=== PATIENT | female | born 1975 | race African-American/Black ===

== ENCOUNTER 2020-12-13 19:20 | Emergency (ER) | payer SELFPAY ==
[~2020-12-13] VITALS: Ht 170.2 cm; Wt 122.0 kg
[2020-12-13] MEDS ORDERED: ALBUTEROL (0.083%) 2.5MG/3ML NEB HHN STA (21:31)
[2020-12-13] MEDS ORDERED: ASPIRIN 81MG TABLET PO ONE (21:45)
[2020-12-13 23:47] LABS: BASOPHILS % 0.4 % (0.0-2.0); EOSINOPHILS % 1.1 % (0.0-5.0); HEMATOCRIT. 36.5 % (36.0-48.0); HEMOGLOBIN. 11.9 g/dL (12.0-16.0); LYMPHOCYTES % 39.2 % (20.0-50.0); MEAN CORPUSCULAR HEMOGLOBIN 29.9 pg (28.0-32.0); MEAN CORPUSCULAR VOLUME 91.4 fL (81.0-99.0); MEAN PLATELET VOLUME 8.4 fl (7.4-10.4); MONOCYTES % 6.2 % (2.0-8.0); NEUTROPHILS % 53.1 % (40.0-76.0); PLATELET 252 x1000/uL (130-400); RED BLOOD CELL COUNT 3.99 mill/uL (4.2-5.4)
[2020-12-13 23:52] LABS: CHLORIDE 108 mEq/L (98-107)
[2020-12-14 00:25] LABS: *COCAINE SCREEN URINE NEGATIVE (NEGATIVE)
[2020-12-14 00:26] LABS: *AMPHETAMINES SCREEN URINE NEGATIVE (NEGATIVE); *BARBITURATES SCREEN URINE NEGATIVE (NEGATIVE); *BENZODIAZEPINES SCREEN URINE NEGATIVE (NEGATIVE); METHADONE URINE SCREEN NEGATIVE (NEGATIVE); OPIATES URINE SCREEN NEGATIVE (NEGATIVE); PHENCYCLIDINE URINE SCREEN NEGATIVE (NEGATIVE)
[2020-12-14 00:31] LABS: CANNABINOID URINE SCREEN PRESUMTIVE POSITIVE (NEGATIVE)
[2020-12-14 00:55] VITALS: BP 135/81
== END 2020-12-14 01:08 | disposition home or self-care (01) ==
LOC: ER 19:20
DX: R07.89 Other chest pain (principal); R00.2 Palpitations; R06.02 Shortness of breath; F12.90 Cannabis use, unspecified, uncomplicated; I10 Essential (primary) hypertension; F17.210 Nicotine dependence, cigarettes, uncomplicated; J45.909 Unspecified asthma, uncomplicated; E78.00 Pure hypercholesterolemia, unspecified; Z71.6 Tobacco abuse counseling; Z98.890 Other specified postprocedural states
CPT/HCPCS: 36415; 71045; 80053; 80305; 83690; 83880; 84484; 85025; 85379; 94640; 99284; 99406; Z7610

== ENCOUNTER 2021-02-18 12:39 | Emergency (ER) | payer OTHER ==
[~2021-02-18] VITALS: Ht 170.2 cm; Wt 122.0 kg
[2021-02-18] MEDS ORDERED: HYDROCODONE/ACETAMINOPHEN 5/325MG TABLET PO ONE (13:00)
[2021-02-18] MEDS ORDERED: KETOROLAC 30MG/ML VIAL IV ONE (13:00)
[2021-02-18 14:12] LABS: BASOPHILS % 0.6 % (0.0-2.0); EOSINOPHILS % 1.1 % (0.0-5.0); HEMATOCRIT. 24.1 % (36.0-48.0); LYMPHOCYTES % 27.7 % (20.0-50.0); MEAN CORPUSCULAR HEMOGLOBIN 29.7 pg (28.0-32.0); MEAN CORPUSCULAR VOLUME 89.4 fL (81.0-99.0); MEAN PLATELET VOLUME 7.5 fl (7.4-10.4); MONOCYTES % 4.7 % (2.0-8.0); NEUTROPHILS % 65.9 % (40.0-76.0); PLATELET 67 x1000/uL (130-400); RED CELL DISTRIBUTION WIDTH 13.6 % (11.6-14.6)
[2021-02-18 14:22] LABS: CHLORIDE 108 mEq/L (98-107)
[2021-02-18 14:32] LABS: B-HCG QUANTITATIVE 2 mIU/mL (<3)
[2021-02-18 14:59] LABS: CLARITY URINE TURBID (CLEAR); COLOR URINE BLOODY (YELLOW); KETONES URINE 1+ (NEGATIVE); LEUKOCYTE ESTERASE URINE 2+ (NEGATIVE); NITRITE URINE POSITIVE (NEGATIVE); OCCULT BLOOD URINE 3+ (NEGATIVE); PROTEIN URINE 4+ (NEGATIVE); SPECIFIC GRAVITY URINE 1.032 (1.005-1.030)
[2021-02-18 16:00] VITALS: BP 132/81
[2021-02-18] MEDS ORDERED: NITR-87 MT (16:08)
== END 2021-02-18 16:26 | disposition home or self-care (01) ==
LOC: ER 12:39
DX: N93.9 Abnormal uterine and vaginal bleeding, unspecified (principal); D64.9 Anemia, unspecified; J45.909 Unspecified asthma, uncomplicated; E78.00 Pure hypercholesterolemia, unspecified; Z98.890 Other specified postprocedural states; Z90.49 Acquired absence of other specified parts of digestive tract
CPT/HCPCS: 36415; 76830; 76856; 80053; 81003; 81025; 84702; 85025; 86850; 86900; 86901; 96374; 99284; J1885

== ENCOUNTER 2021-08-31 09:08 | Emergency (ER) | payer MEDICAID, OTHER ==
[~2021-08-31] VITALS: Ht 170.2 cm; Wt 125.0 kg
[~2021-08-31 09:08] MED LIST: NITR-87 MT
[2021-08-31] MEDS ORDERED: SODIUM CHLORIDE 0.9% 1,000 ML IV ONE (10:00)
[2021-08-31] MEDS ORDERED: ONDANSETRON HCL 4MG/2ML INJ IV STA (10:07)
[2021-08-31] MEDS ORDERED: MORPHINE SULFATE 4 MG/ML CPJ (NOT FOR IM USE) IV STA (10:07)
[2021-08-31 10:34] LABS: CHLORIDE 107 mEq/L (98-107); PROTHROMBIN TIME 10.4 sec (9.6-11.0)
[2021-08-31 10:41] LABS: CLARITY URINE CLEAR (CLEAR); COLOR URINE YELLOW (YELLOW); KETONES URINE NEGATIVE (NEGATIVE); LEUKOCYTE ESTERASE URINE NEGATIVE (NEGATIVE); NITRITE URINE NEGATIVE (NEGATIVE); OCCULT BLOOD URINE NEGATIVE (NEGATIVE); PROTEIN URINE NEGATIVE (NEGATIVE); SPECIFIC GRAVITY URINE 1.019 (1.005-1.030); UROBILINOGEN URINE 0.2 E.U./dL (0.2-1.0)
[2021-08-31 10:42] LABS: BASOPHILS % 0.5 % (0.0-2.0); EOSINOPHILS % 0.6 % (0.0-5.0); HEMATOCRIT. 35.2 % (36.0-48.0); HEMOGLOBIN. 11.6 g/dL (12.0-16.0); LYMPHOCYTES % 31.6 % (20.0-50.0); MEAN CORPUSCULAR HEMOGLOBIN 28.5 pg (28.0-32.0); MEAN CORPUSCULAR VOLUME 86.1 fL (81.0-99.0); MEAN PLATELET VOLUME 8.6 fl (7.4-10.4); MONOCYTES % 5.3 % (2.0-8.0); PLATELET 187 x1000/uL (130-400); RED BLOOD CELL COUNT 4.08 mill/uL (4.2-5.4); RED CELL DISTRIBUTION WIDTH 16.2 % (11.6-14.6)
[2021-08-31 10:43] LABS: HCG SCREEN NEGATIVE
[2021-08-31] MEDS ORDERED: OMEP20CA14 MT (12:53)
[2021-08-31] MEDS ORDERED: IBUP-2030 MT (12:53)
[2021-08-31 13:10] VITALS: BP 132/77
== END 2021-08-31 13:30 | disposition home or self-care (01) ==
LOC: ER 09:50
DX: R10.32 Left lower quadrant pain (principal)
CPT/HCPCS: 36415; 74176; 80053; 81003; 83690; 84703; 85025; 85610; 96361; 96374; 96375; 99284; J2270; J2405; J7030

== ENCOUNTER 2024-05-10 07:57 | Emergency (ER) | payer BC, MEDICAID ==
[~2024-05-10] VITALS: Ht 170.2 cm; Wt 143.0 kg
[~2024-05-10 07:57] MED LIST changes: +IBUP-2030 MT; +OMEP20CA14 MT
[2024-05-10 08:06] VITALS: BP 142/85; RESP 12; TEMP 36.8; O2SAT 98
[2024-05-10 08:07] VITALS: PULSE 112; O2SAT 100
[2024-05-10] MEDS ORDERED: SUMATRIPTAN SUCCINATE 6MG/0.5ML VIAL SUBCUT ONE (08:45)
[2024-05-10 09:15] VITALS: TEMP 98.2
[2024-05-10] MEDS: METOCLOPRAMIDE HCL 10MG/2ML VIAL IM ONE (09:15)
[2024-05-10] MEDS: SUMATRIPTAN SUCCINATE 6MG/0.5ML VIAL SUBCUT NR (09:15)
[2024-05-10] MEDS: ACETAMINOPHEN 500MG TABLET PO ONE (09:15)
== END 2024-05-10 11:06 | disposition home or self-care (01) ==
LOC: ER 08:29
DX: R51.9 Headache, unspecified (principal); E11.9 Type 2 diabetes mellitus without complications; I10 Essential (primary) hypertension; J45.909 Unspecified asthma, uncomplicated; K21.9 Gastro-esophageal reflux disease without esophagitis; Z79.899 Other long term (current) drug therapy; Z90.49 Acquired absence of other specified parts of digestive tract
CPT/HCPCS: 99284; 81025; 96372; J2765; J3030; C1893